=== PATIENT | female | born 1985 | race African-American/Black ===

== ENCOUNTER 2018-02-06 17:29 | Emergency (ER) | payer MEDICARE, OTHER ==
[~2018-02-06] VITALS: Ht 180.3 cm; Wt 74.8 kg
[~2018-02-06 17:29] MED LIST: IBUPROFEN600 MG ORAL; KEFLEX500 MG ORAL; NKM
[2018-02-06 17:40] VITALS: BP 115/73
--- NOTE | 2018-02-06 18:03 | Emergency Room Report ---
History of Present Illness General Chief Complaint: Skin Rash/Abscess Source: Patient Present Illness HPI 33 YO female presents to the ED c/o itchy rash on the inner elbow area of bilateral UE's x 1 week., Pt. also reports itchy rash under the breasts and on the chest x 1 year. Denies pain. Pt. denies fevers, chills or swollen tender lymph nodes. Denies lesions/rashes elsewhere on the body. Denies new medications or body washes or creams. Denies swelling of the lips, tongue , throat or airway. Denies wheezing, or shortness of breath. Denies recent travel , recent illness or ill contacts. denies blisters, oral lesions, or sloughing of the skin Allergies: Coded Allergies: No Known Allergies (Unverified , 02/06/18) Patient History Past Medical History: see triage record Past Surgical History: none Pertinent Family History: none Last Menstrual Period: jan 2018 Now: No Immunizations: UTD Reviewed Nursing Documentation: PMH: Agreed; PSxH: Agreed Nursing Documentation-PMH Past Medical History: No Stated History Review of Systems All Other Systems: negative except mentioned in HPI Physical Exam Vital Signs Date Time Temp Pulse Resp B/P (MAP) Pulse Ox O2 Delivery O2 Flow Rate FiO2 02/06/18 17:36 98.6 102 17 115/73 96 Room Air 98.6 Sp02 EP Interpretation: reviewed, normal General Appearance: no apparent distress, alert, GCS 15, non-toxic Head: normocephalic, atraumatic Eyes: bilateral eye normal inspection, bilateral eye PERRL ENT: hearing grossly normal, no angioedema, normal voice, other - no swelling of the lips or tongue Neck: full range of motion Respiratory: lungs clear, normal breath sounds, no respiratory distress, no wheezing, speaking full sentences Cardiovascular #1: regular rate, rhythm Musculoskeletal: back normal, gait/station normal, normal range of motion, non- tender Neurologic: alert, oriented x3, responsive, motor strength/tone normal, sensory intact, normal gait, speech normal, grossly normal Psychiatric: judgement/insight normal Skin: normal color, warm/dry, well hydrated, rash - hyper pigmented annular lesions of eczema of the bilateral UE's in the AC area, and hyperpigmented annular and coalesced plaque /tinea corporis of the breast area. no evidence of bacterial infection at this time. no blisters or vesicles Medical Decision Making PA Attestation Dr. Aranda is my supervising Physician whom patient management has been discussed with. Diagnostic Impression: Primary Impression: Rash and other nonspecific skin eruption ER Course 33 YO female presents to the ED c/o itchy rash on the inner elbow area of bilateral UE's x 1 week., Pt. also reports itchy rash under the breasts and on the chest x 1 year. Denies pain. Pt. denies fevers, chills or swollen tender lymph nodes. Denies lesions/rashes elsewhere on the body. Denies new medications or body washes or creams. Denies swelling of the lips, tongue , throat or airway. Denies wheezing, or shortness of breath. Denies recent travel , recent illness or ill contacts. denies blisters, oral lesions, or sloughing of the skin Ddx considered but are not limited to cellulitis, scabies, shingles, varicella, dermatitis, urticaria, eczema, tinea, viral exanthem, SJS Vital signs: are WNL, pt. is afebrile H&PE are most consistent with hyper pigmented annular lesions of eczema of the bilateral UE's in the AC area, and hyperpigmented annular and coalesced plaque / tinea corporis of the breast area. no evidence of bacterial infection at this time. no blisters or vesicles ORDERS: none required at this time, the diagnosis is clinical ED INTERVENTIONS: None required at this time. DISCHARGE: At this time pt. is stable for d/c to home. Will provide printed patient care instructions, and any necessary prescriptions. Care plan and follow up instructions have been discussed with the patient prior to discharge. Last Vital Signs Date Time Temp Pulse Resp B/P (MAP) Pulse Ox O2 Delivery O2 Flow Rate FiO2 02/06/18 17:36 98.6 102 17 115/73 96 Room Air 98.6 Disposition: HOME, SELF-CARE Condition: Stable Scripts Terbinafine Hcl (TERBINAFINE HCL) 30 Gm Cream..g. 1 APPLIC TP BID, #30 GM Prov: Libby Trejo 02/06/18 Triamcinolone Acet (Triamcinolone Acetonide) 15 Gm Cream..g. 1 APPLIC TP BID, #15 GM Prov: Libby Trejo 02/06/18 Patient Instructions: Eczema, Rash, Skin Yeast Infection Additional Instructions: Take medications as directed. Follow up with a Primary Care Provider in 3-5 days, even if your symptoms have resolved. --Please review list of primary care clinics, if you do not already have a primary care provider Return sooner to ED if new symptoms occur, or current symptoms become worse. - Please note that this Emergency Department Report was dictated using [employer] ui developer technology software, occasionally this can lead to erroneous entry secondary to interpretation by the dictation equipment. Libby Trejo Feb 06, 2018 18:03
[2018-02-06] MEDS ORDERED: KENALOG 0.5% CR15 GM TP (18:04)
[2018-02-06] MEDS ORDERED: TERBINAFINE HCL30 GM TP (18:04)
[2018-02-06 18:08] VITALS: BP 110/71
== END 2018-02-06 18:25 | disposition home or self-care (01) ==
LOC: EMR 18:25
DX: R21 Rash and other nonspecific skin eruption (principal)
CPT/HCPCS: 99282

== ENCOUNTER 2019-01-26 16:33 | Emergency (ER) | payer MEDICARE, OTHER ==
[~2019-01-26] VITALS: Ht 180.3 cm; Wt 74.8 kg
[~2019-01-26 16:33] MED LIST changes: +KENALOG 0.5% CR15 GM TP; +TERBINAFINE HCL30 GM TP
[2019-01-26] MEDS ORDERED: Lidocaine 2% MPF 5ml Vial INJ ONE (17:00)
--- NOTE | 2019-01-26 17:01 | NUR ---
ED Nurse Note: PT WALKED IN TO ER TODAY FROM HOME. AOX4. PT C/O RIGHT FOOT BIG TOE PAIN, 2/10 AFTER ACCIDENTALLY KICKING THE FRIDGE LAST WEEK. PT DENIES NUMBNESS OR TINGLING, FULL ROM OF DIGIT, MUSCLE STRENGTH 5/5 OF FOOT, CIRCULATION AND SENSATION INTACT. NAIL ALMOST COMPLETELY DETACHED EXCEPT AT BASE.
--- NOTE | 2019-01-26 17:09 | Emergency Room Report ---
History of Present Illness General Chief Complaint: Lower Extremity Injury Source: Patient Present Illness HPI 34-year-old female presents to the emergency department complaining of almost complete avulsion of the right great toe occurring traumatically 1 week ago. Patient reports initially 10 out of 10 severity pain however over the course of 1 week she reports no pain at this time however she states her toenail is hanging off and on occasion when she bumps it she will experience pain acutely. He reports that she was suspicious of possible fungal infection which may have compromised the integrity of her toenail. Patient reports that she stubbed her toe on a kitchen fridge and this is what resulted. Denies suspicion of acute fractures she reports she is able to ambulate without pain or need of assistance. Reports erythema about the cuticle line. Denies drainage or discharge. Patient reports initial bleeding which subsided that day. She denies fevers or chills. Allergies: Coded Allergies: No Known Allergies (Unverified , 02/06/18) Patient History Past Medical History: see triage record Past Surgical History: none Pertinent Family History: none Last Menstrual Period: 01/24/19 Now: No Reviewed Nursing Documentation: PMH: Agreed; PSxH: Agreed Nursing Documentation-PMH Past Medical History: No Stated History Review of Systems All Other Systems: negative except mentioned in HPI Physical Exam Vital Signs Date Time Temp Pulse Resp B/P (MAP) Pulse Ox O2 Delivery O2 Flow Rate FiO2 01/26/19 16:42 98.6 67 20 138/69 (92) 98 Room Air Sp02 EP Interpretation: reviewed, normal General Appearance: no apparent distress, alert, GCS 15, non-toxic Head: normocephalic, atraumatic Eyes: bilateral eye normal inspection, bilateral eye PERRL ENT: hearing grossly normal, normal voice Neck: full range of motion Respiratory: chest non-tender, lungs clear, normal breath sounds, speaking full sentences Cardiovascular #1: regular rate, rhythm, no edema Gastrointestinal: normal bowel sounds, non tender, soft Rectal: deferred Genitourinary: normal inspection Musculoskeletal: back normal, gait/station normal, normal range of motion, non- tender Neurologic: alert, oriented x3, responsive, motor strength/tone normal, sensory intact, speech normal, grossly normal Psychiatric: judgement/insight normal Skin: other - Toe nail avulsion of the right great toe with eponychia. Lymphatic: no adenopathy Procedures Additional Procedure Procedure Narrative TOE NAIL REMOVAL PROCEDURE NOTE: - verbal consent was received by pt. for removal of partially avulsed right great toe nail. - Pt. was anesthetized using 5ml of 2% Lidocaine by a digital ring block technique. - Right Great Toe was cleaned with Betadine prep., Draped in a sterile fashion. - The nail was grasped by hemostats and removed with careful traction. pt. tolerated well without complication. - antibiotic ointment and sterile band-aid was then applied afterward. - will d/c pt. with PO abx. Medical Decision Making PA Attestation Dr. Olivier is my supervising Physician whom patient management has been discussed with. Diagnostic Impression: Primary Impression: Nail avulsion of toe Qualified Codes: S91.209A - Unspecified open wound of unspecified toe(s) with damage to nail, initial encounter Additional Impressions: Traumatic avulsion of nail plate of toe Qualified Codes: S91.209A - Unspecified open wound of unspecified toe(s) with damage to nail, initial encounter Eponychia ER Course 34-year-old female presents to the emergency department complaining of almost complete avulsion of the right great toe occurring traumatically 1 week ago. Patient reports initially 10 out of 10 severity pain however over the course of 1 week she reports no pain at this time however she states her toenail is hanging off and on occasion when she bumps it she will experience pain acutely. He reports that she was suspicious of possible fungal infection which may have compromised the integrity of her toenail. Patient reports that she stubbed her toe on a kitchen fridge and this is what resulted. Denies suspicion of acute fractures she reports she is able to ambulate without pain or need of assistance. Reports erythema about the cuticle line. Denies drainage or discharge. Patient reports initial bleeding which subsided that day. She denies fevers or chills. Ddx considered but are not limited to cellulitis, paronychia, eponychia, ingrown toe nail, fracture, d/L, gout Vital signs: are WNL, pt. is afebrile H&PE are most consistent with Toe nail avulsion of the right great toe with eponychia. ORDERS: none required at this time, the diagnosis is clinical ED INTERVENTIONS: - verbal consent was received . - Pt. was anesthetized using 5ml of 2% Lidocaine by a digital ring block technique. - lesion was cleaned with Betadine prep. - The nail was grasped by hemostats and removed with careful traction. pt. tolerated well without complication. - antibiotic ointment and sterile band-aid was then applied afterward. - will d/c pt. with PO abx. DISCHARGE: At this time pt. is stable for d/c to home. Will provide printed patient care instructions, and any necessary prescriptions. Care plan and follow up instructions have been discussed with the patient prior to discharge. Last Vital Signs Date Time Temp Pulse Resp B/P (MAP) Pulse Ox O2 Delivery O2 Flow Rate FiO2 01/26/19 16:42 98.6 67 20 138/69 (92) 98 Room Air Status: improved Disposition: HOME, SELF-CARE Condition: Stable Scripts Clotrimazole* (LOTRIMIN*) 15 Gm Cream..g. 1 APPLIC TOPIC TWICE A DAY, #15 GM Prov: Libby Trejo 01/26/19 Clindamycin Hcl (CLINDAMYCIN HCL) 300 Mg Capsule 300 MG ORAL FOUR TIMES A DAY for 7 Days, #28 CAP Prov: Libby Trejo 01/26/19 Patient Instructions: Nail Avulsion Additional Instructions: Take medications as directed. Follow up with a Primary Care Provider in 3-5 days, even if your symptoms have resolved. Frequent [employer]. --Please review list of primary care clinics, if you do not already have a primary care provider Return sooner to ED if new symptoms occur, or current symptoms become worse. - Please note that this Emergency Department Report was dictated using [employer] technology software, occasionally this can lead to erroneous entry secondary to interpretation by the dictation equipment. Libby Trejo Jan 26, 2019 17:08
[2019-01-26] MEDS ORDERED: CLINDAMYCIN HC300 MG ORAL (17:31)
[2019-01-26] MEDS ORDERED: CLOTRIMAZOLE15 GM TOPIC (17:31)
--- NOTE | 2019-01-26 17:32 | NUR ---
ED Nurse Note: PT SITTING PEACEFULLY IN BED IN NAD. AOX4. PRESCRIPTIONS AND DISCHARGE PAPERWORK EXPLAINED TO PT. PT VERBALIZES UNDERSTANDING AND ALL QUESTIONS ANSWERED. PRESCRIPTIONS AND DISCHARGE PAPERWORK GIVEN TO PT AND ID WRISTBAND REMOVED. PT WALKED OUT OF ER WITH STEADY GAIT AND ALL BELONGINGS.
[2019-01-26 17:33] VITALS: BP 132/72
== END 2019-01-26 17:32 | disposition home or self-care (01) ==
LOC: EMR 17:05
DX: S91.201A Unspecified open wound of right great toe with damage to nail, initial encounter (principal); Q84.6 Other congenital malformations of nails; W22.09XA Striking against other stationary object, initial encounter; Y92.000 Kitchen of unspecified non-institutional (private) residence as the place of occurrence of the external cause
CPT/HCPCS: 99283